=== PATIENT | male | born 1950 | race Caucasian/White ===

== ENCOUNTER 2017-04-28 23:17 | Emergency (ER) | payer MEDICARE ==
[2017-04-28] MEDS ORDERED: Adacel (T-DAP) 0.5 ML VIAL ONE (23:52)
[2017-04-28] MEDS ORDERED: Amoxicillin/Potassium Clav 875 MG TAB ONE ×2 (23:52→23:54)
--- NOTE | 2017-04-29 07:44 | RAD ---
3 VIEWS RIGHT THUMB: Date: 04/29/17 HISTORY: Right thumb swelling and redness. Possible thorn stuck in thumb. FINDINGS: There is subcutaneous soft tissue swelling seen at the volar aspect of the distal thumb. No radiopaqu e foreign body is seen. There is no osseous destruction seen. No fracture or dislocation is identifie d. 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 IMPRESSION: Subcutaneous soft tissue swelling right thumb, but no radiopaque foreign body or fracture is visualiz ed. If there is concern for osteomyelitis, MRI of right thumb is recommended for further evaluation. POS: CODY
== END 2017-04-29 00:14 | disposition home or self-care (01) ==
LOC: SCSER 23:17
DX: S61.031A Puncture wound without foreign body of right thumb without damage to nail, initial encounter (principal); L03.011 Cellulitis of right finger; E78.5 Hyperlipidemia, unspecified; Z23 Encounter for immunization; W26.8XXA Contact with other sharp object(s), not elsewhere classified, initial encounter
CPT/HCPCS: 90471; 90715

== ENCOUNTER 2017-08-01 07:48 | Outpatient (CLI) | payer MEDICARE ==
--- NOTE | 2017-08-01 09:44 | ULT ---
ABDOMINAL AORTIC ULTRASOUND: History: 67-year-old male for screening for abdominal aortic aneurysm. FINDINGS: There is some atherosclerotic plaque involving the aorta. No evidence for focal aneurysm. The bifurca tion regions are unremarkable. Right and left visualized iliac arteries are unremarkable. IMPRESSION: Atherosclerotic plaques involving the aorta, evidence for atherosclerotic disease. No evidence of ane urysm. POS: BRENDA
== END 2017-08-01 07:49 | disposition home or self-care (01) ==
LOC: SCSULT 07:48
PROVIDERS: ATTEND Family Medicine
DX: Z13.6 Encounter for screening for cardiovascular disorders (principal); I70.0 Atherosclerosis of aorta
CPT/HCPCS: 76775

== ENCOUNTER 2017-10-27 23:20 | Emergency (ER) | payer MEDICARE ==
[2017-10-28] MEDS ORDERED: Dicyclomine 20 MG TAB ONE (00:25)
[2017-10-28] MEDS ORDERED: HYDROcodone/Acetaminophen 5/325 mg Tablet ONE (00:25)
== END 2017-10-28 00:52 | disposition home or self-care (01) ==
LOC: SCSER 23:20
DX: R10.32 Left lower quadrant pain (principal); E78.5 Hyperlipidemia, unspecified; Z79.82 Long term (current) use of aspirin
CPT/HCPCS: 99283

== ENCOUNTER 2019-02-26 16:32 | Outpatient (CLI) | payer MEDICARE | END 2019-02-26 16:33 | disposition home or self-care (01) | LOC: CTENTCT 16:32 | PROVIDERS: ATTEND Otolaryngology Plastic Surgery within the Head & Neck | DX: J32.8 Other chronic sinusitis (principal) | CPT/HCPCS: 70486 ==

== ENCOUNTER 2019-08-13 05:38 | Outpatient (CLI) | payer MEDICARE, OTHER ==
[2019-08-13 14:04] LABS: PTT 34.3 sec (22.9-36.1); Prothrombin Time 12.8 sec (12.0-14.7)
[2019-08-13 14:05] LABS: Bacteria/HPF None Seen HPF (None Seen); Bilirubin Negative (Negative); Blood, Urine Negative (Negative); Clarity Clear (Clear); Glucose, Urine (Dipstick) Normal (Negative); Ketone, Urine Negative (Negative); Leukocyte Negative Leu/uL (Negative); Nitrite Negative (Negative); Protein, Urine (Dipstick) Negative (Neg-Trace); RBC/HPF 0-3 HPF (0-3); Specific Gravity, Urine 1.026 (1.002-1.036); Squamous Epithelial None Seen HPF (0-3); Urobilinogen Normal mg/dL (Less than 2); pH, Urine 5.5 (5.0-9.0)
[2019-08-13 14:10] LABS: Hemoglobin 15.6 g/dL (14.0-18.0); Mean Corpuscular HGB CONC 32.2 g/dL (32.0-36.0); Mean Corpuscular Hemoglobin 29.9 pg (27.0-31.0); Mean Platelet Volume 9.1 fL (7.4-10.4); Platelet Count 176 thou/uL (130-400); RBC Distribution Width 12.1 % (11.5-14.5); White Blood Cell (WBC) Count 7.2 thou/uL (4.8-10.8)
[2019-08-13 14:13] LABS: Anion Gap 13 mmol/L (10-20); BUN (Urea Nitrogen) 24 mg/dL (8.4-25.7); Calc. Creatinine Clearance 0 mL/min (70-130); Calcium 9.5 mg/dL (7.8-10.44); Carbon Dioxide 23 mmol/L (23-31); Chloride 106 mmol/L (98-107); Estimated GFR-MDRD 78; Glucose 108 mg/dL (80-115); Potassium 4.4 mmol/L (3.5-5.1); Sodium 138 mmol/L (136-145)
--- NOTE | 2019-08-13 15:55 | EKG ---
Test Reason : Blood Pressure : / mmHG Vent. Rate : 072 BPM Atrial Rate : 072 BPM P-R Int : 148 ms QRS Dur : 108 ms QT Int : 410 ms P-R-T Axes : -01 020 -20 degrees QTc Int : 448 ms Normal sinus rhythm Incomplete right bundle branch block Abnormal ECG When compared with ECG of 03-JUN-2010 14:27, Confirmed by CYNTHIA HUANG, DR. Lay ([id number]) on 08/13/2019 3:55:40 PM Referred By: MACHO Confirmed By:DR. Alireza MARIE MD
[2019-08-14 12:43] LABS: SARS-CoV-2 MS2 Positive; SARS-CoV-2 N Gene Negative; SARS-CoV-2 S Gene Negative; SARS-CoV-2 orf1ab Negative
== END 2019-08-13 05:39 | disposition home or self-care (01) ==
LOC: LABBT 05:38
PROVIDERS: ATTEND Urology
DX: Z01.818 Encounter for other preprocedural examination (principal); Z11.59 Encounter for screening for other viral diseases; N40.1 Benign prostatic hyperplasia with lower urinary tract symptoms; N13.8 Other obstructive and reflux uropathy; E66.9 Obesity, unspecified; R35.1 Nocturia
CPT/HCPCS: 80048; 81001; 85027; 85610; 85730; 87086; 93005; U0003; 87635; 93010

== ENCOUNTER 2019-08-16 07:04 | Day surgery (SDC) | payer MEDICARE ==
[2019-08-12 11:51] VITALS: BMI 30.7
[2019-08-16] MEDS ORDERED: Levofloxacin 500 mg/D5W 100 ml Premix Bag ONE (07:45)
[2019-08-16] MEDS ORDERED: B & O ONE (09:19)
[2019-08-16] MEDS ORDERED: Fentanyl 100 MCG/2 ML VIAL ONE ×2 (09:25→10:41)
[2019-08-16] MEDS ORDERED: Oxybutynin 5 MG TAB ONE (10:41)
[2019-08-16] MEDS ORDERED: Phenazopyridine HCl 97.5 MG TABLET ONE (10:42)
[2019-08-16] MEDS ORDERED: PROPOFOL 200 MG/20 ML VIAL ONE (12:20)
[2019-08-16] MEDS ORDERED: Ondansetron PF 4 MG/2 ML Vial ONE (12:20)
[2019-08-16] MEDS ORDERED: Lidocaine 1% PF 5 ML VIAL ONE (12:20)
--- NOTE | 2019-08-16 16:19 | OP ---
DATE OF PROCEDURE: 08/16/2019 SERVICE: Urology. PREOPERATIVE DIAGNOSIS: Benign prostatic hyperplasia with urinary obstruction. POSTOPERATIVE DIAGNOSIS: Benign prostatic hyperplasia with urinary obstruction. PROCEDURE PERFORMED: UroLift with 6 implants. INDICATIONS FOR PROCEDURE: Mr. Herbert is a 69-year-old white male, who presented with BPH and urinary complaints. His cystoscopy showed suitability for UroLift. We discussed procedure with risks and benefits, and he wished to proceed forward. DESCRIPTION OF PROCEDURE: After identification of armband and verification of consent, the patient was brought back to the operating room, where he underwent general anesthesia with an LMA. He was then placed in dorsal lithotomy position and prepped and draped in usual sterile fashion. After appropriate time-out, a lubricated 21-Niuean rigid cystoscope sheath with visual obturator was passed through the urethra through the prostate into the bladder. The prostate showed features typical to what had been seen on outpatient cystoscopy. The visual obturator was switched out for the UroLift device. The first UroLift implant was placed near the patient's bladder neck on the left side by coming approximately 2.5 cm away from the bladder neck and applying lateral anterior compression. Once compressed, the safety was released and the blue trigger fired with deployment of the needle. The capsular tab and tension were set with a dash trigger, and then the UroLift was advanced forward until the white line was in the keyhole. The back trigger was then fired to deploy the urethral end piece. It was resulted in relatively nice compression of the lateral aspect of the prostate. This was then repeated on the patient's right side and again at the patient's apex on the left and right side. Upon completion, the prostate did appear open; however, there was still a bulge and sagging of the patient's left anterolateral prostate. An anterior implant was placed closer to the bladder neck, which resulted in nice elevation, but still did not address the lateral indentation, so an additional implant had to be used to compress the tissues laterally. After doing this, the prostate did appear very wide open. At this point, I did not feel any additional implants to make any meaningful additional improvements, and the patient does appear to be fully unobstructed. The cystoscope was then withdrawn and an 18-Niuean Umaña catheter was placed with ease into the patient's bladder. 10 mL of sterile water was placed into the balloon and hooked up to gravity drainage. B and O suppository was placed in the rectum. The patient was then taken out of positioning, awakened, taken to PACU for recovery in stable condition. COMPLICATIONS: None. ESTIMATED BLOOD LOSS: Minimal. RETAINED TUBES AND DRAINS: 18-Niuean Umaña catheter. SPECIMENS: None. IMPLANTS USED: Six. DISPOSITION: The patient will undergo a void trial here and then be discharged with his care handled on outpatient basis. Job ID: [id number]
== END 2019-08-16 12:35 | disposition home or self-care (01) ==
LOC: SDC 07:04
PROVIDERS: ATTEND Urology
PROC: 0T7D8DZ Dilation of Urethra with Intraluminal Device, Via Natural or Artificial Opening Endoscopic (ICD-10-PCS; principal; 2019-08-16)
DX: N40.1 Benign prostatic hyperplasia with lower urinary tract symptoms (principal); N13.8 Other obstructive and reflux uropathy; R35.1 Nocturia; R39.12 Poor urinary stream; E66.9 Obesity, unspecified; Z68.30 Body mass index [BMI] 30.0-30.9, adult; Z79.1 Long term (current) use of non-steroidal anti-inflammatories (NSAID); Z79.899 Other long term (current) drug therapy; Z88.3 Allergy status to other anti-infective agents; Z91.048 Other nonmedicinal substance allergy status
CPT/HCPCS: C1889; C9740; J1956; J2405; J2704; J3010

== ENCOUNTER 2020-11-30 10:50 | Outpatient (CLI) | payer MEDICARE | END 2020-11-30 10:51 | disposition home or self-care (01) | LOC: SCSRAD 10:50 | PROVIDERS: ATTEND Family Medicine | DX: M25.562 Pain in left knee (principal); M25.561 Pain in right knee ==

== ENCOUNTER 2021-03-16 17:34 | Outpatient (CLI) | payer MEDICARE ==
[2021-03-17 14:39] LABS: SARS-CoV-2 PCR by NAA Not Detected (NotDetected)
== END 2021-03-16 17:35 | disposition home or self-care (01) ==
LOC: LABBT 17:34
PROVIDERS: ATTEND Ophthalmology Retina Specialist
DX: Z01.812 Encounter for preprocedural laboratory examination (principal); H33.21 Serous retinal detachment, right eye; Z20.822 Contact with and (suspected) exposure to COVID-19
CPT/HCPCS: U0003; U0005

== ENCOUNTER 2021-03-18 10:47 | Day surgery (SDC) | payer MEDICARE ==
[2021-03-16 16:16] VITALS: BMI 32.1
[~2021-03-18 10:47] MED LIST: Fentanyl 100 MCG/2 ML VIAL ONE; Fluorouracil 100 MG, Enoxaparin Sodium 25 MG, EPINEPHrine 0.3 MG in Ophthalmic Irrigati... IRR SCH; Midazolam HCl 2 mg/2 ml Vial ONE
[2021-03-18] MEDS ORDERED: Cyclopentolate 1% Opth Drop 2 ML BOT ONE (12:55)
[2021-03-18] MEDS ORDERED: Phenylephrine 2.5% Ophth Soln 5 ML BOT ONE (12:55)
[2021-03-18] MEDS ORDERED: Maxitrol 0.1% Opth Oint 3.5 GM TUBE ONE (14:08)
[2021-03-18] MEDS ORDERED: Bupivacaine PF 0.75% SDV 10 ML ONE (14:08)
[2021-03-18] MEDS ORDERED: Enoxaparin Sodium 30 MG/0.3 ML SYRINGE ONE (14:08)
[2021-03-18] MEDS ORDERED: Triamcinolone 40 MG/ML VIAL ONE (14:08)
[2021-03-18] MEDS ORDERED: PROPOFOL 200 MG/20 ML VIAL ONE (14:08)
[2021-03-18] MEDS ORDERED: CEFAZOLIN 1 GM VIAL ONE (14:08)
[2021-03-18] MEDS ORDERED: Lidocaine 1% PF 5 ML VIAL ONE (14:08)
[2021-03-18] MEDS ORDERED: Lidocaine 4% PF 5 ML AMP ONE (14:08)
== END 2021-03-18 15:37 | disposition home or self-care (01) ==
LOC: SDC 10:47
PROVIDERS: ATTEND Ophthalmology Retina Specialist
PROC: 08T43ZZ Resection of Right Vitreous, Percutaneous Approach (ICD-10-PCS; principal; 2021-03-18)
DX: H33.011 Retinal detachment with single break, right eye (principal); Z88.8 Allergy status to other drugs, medicaments and biological substances; Z91.048 Other nonmedicinal substance allergy status
CPT/HCPCS: 67025; J0171; J0690; J1650; J2250; J2704; J3010; J3301; J3490; J9190

== ENCOUNTER 2022-11-28 10:04 | Outpatient (CLI) | payer MEDICARE | END 2022-11-28 10:05 | disposition home or self-care (01) | LOC: LABBT 10:04 | PROVIDERS: ATTEND Thoracic Surgery (Cardiothoracic Vascular Surgery) | DX: Z01.818 Encounter for other preprocedural examination (principal); I25.10 Atherosclerotic heart disease of native coronary artery without angina pectoris | CPT/HCPCS: 71046; 93005; 93010 ==

== ENCOUNTER 2022-11-28 10:30 | Inpatient (IN) | payer MEDICARE ==
[2022-11-28 11:29] LABS: Hematocrit 43.9 % (38.8-50.0); Hemoglobin 14.9 g/dL (13.5-17.5); Mean Corpuscular HGB CONC 33.9 g/dL (32.0-36.0); Mean Corpuscular Hemoglobin 29.8 pg (27.0-33.0); Mean Corpuscular Volume 87.8 fl (81.2-95.1); Mean Platelet Volume 10.6 fl (7.4-10.4); Platelet Count 191 10x3/uL (150-450); RBC Distribution Width 12.1 % (11.5-14.5); White Blood Cell (WBC) Count 6.2 10x3/uL (3.5-10.5)
[2022-11-28 12:07] LABS: Anion Gap 14 mmol/L (10-20); BUN (Urea Nitrogen) 19 mg/dL (8.4-25.7); Calc. Creatinine Clearance 0 mL/min (70-130); Calcium 9.4 mg/dL (7.8-10.44); Carbon Dioxide 22 mmol/L (23-31); Chloride 107 mmol/L (98-107); Estimated GFR 82; Glucose 126 mg/dL (83-110); Potassium 4.4 mmol/L (3.5-5.1); Sodium 139 mmol/L (136-145)
[2022-11-29] MEDS ORDERED: EPINEPHrine 1 MG/ML AMP ONE (06:37)
[2022-11-29] MEDS ORDERED: Dexamethasone 4 mg/ml Vial ONE (06:37)
[2022-11-29] MEDS ORDERED: Bupivacaine PF 0.5% 30 ML VIAL ONE (06:38)
[2022-11-29] MEDS ORDERED: Midazolam HCl 2 mg/2 ml Vial ONE (06:41)
[2022-11-29] MEDS ORDERED: fentaNYL PF 100 MCG/2 ML SYRINGE ONE (06:42)
[2022-11-29] MEDS ORDERED: Dexmedetomidine 200 MCG/2 ML VIAL ONE (06:42)
[2022-11-29] MEDS ORDERED: CEFAZOLIN 2 GM VIAL ONE (06:59)
[2022-11-29] MEDS ORDERED: Sodium Chloride 0.9% 100 ML ONE (06:59)
[2022-11-29] MEDS ORDERED: Lidocaine 1% MPF 2 ML VIAL ONE (06:59)
[2022-11-29] MEDS ORDERED: Heparin 10,000 UNITS/1 ML VIAL 30,000 UNITS in Sodium Chloride 0.9% 1,000 ML FS SCH (07:00)
[2022-11-29] MEDS ORDERED: PROPOFOL 200 MG/20 ML VIAL ONE (07:42)
[2022-11-29] MEDS ORDERED: NEOSTIGMINE 3 MG/3 ML SYR 3 MG/3 ML SYRINGE ONE (07:42)
[2022-11-29] MEDS ORDERED: Heparin 30,000 units/30 ml VIAL ONE (07:42)
[2022-11-29] MEDS ORDERED: Esmolol 100 MG/10 ML VIAL ONE (07:42)
[2022-11-29] MEDS ORDERED: Ondansetron PF 4 MG/2 ML Vial ONE (07:42)
[2022-11-29] MEDS ORDERED: Succinylcholine 200 MG/10 ml SYRINGE FS ONE (07:42)
[2022-11-29] MEDS ORDERED: Thrombin 5000 UNITS/5 ML VIAL ONE (07:42)
[2022-11-29] MEDS ORDERED: Lidocaine 1% PF 5 ML VIAL ONE (07:42)
[2022-11-29] MEDS ORDERED: Glycopyrrolate 0.2 MG/ML 5 ML SYRINGE ONE (07:42)
[2022-11-29] MEDS ORDERED: Vecuronium 10 MG VIAL ONE (07:42)
[2022-11-29] MEDS ORDERED: Calcium Chloride 1 GM/10 ML Abboject SYRINGE ONE (07:42)
[2022-11-29] MEDS ORDERED: Protamine Sulfate 250 MG/25 ML VIAL ONE (07:42)
[2022-11-29] MEDS ORDERED: Nitroglycerin 50 MG/250 ML BOT ONE (07:42)
[2022-11-29] MEDS ORDERED: Heparin 5,000 UNITS/ML VIAL ONE (07:42)
[2022-11-29] MEDS ORDERED: Dexamethasone 20 MG/5 ML VIAL ONE (07:42)
[2022-11-29] MEDS ORDERED: Papaverine 60 MG/2 ML VIAL ONE (07:42)
[2022-11-29] MEDS ORDERED: Vancomycin 1 GM VIAL ONE (07:42)
[2022-11-29] MEDS ORDERED: Norepinephrine 4 MG/4 ML VIAL ONE (07:42)
[2022-11-29] MEDS ORDERED: Insulin Regular 300 UNITS/3 ML VIAL ONE (09:34)
[2022-11-29] MEDS ORDERED: Bisacodyl 5 MG TAB PO PRN (10:30)
[2022-11-29] MEDS ORDERED: Morphine 2 MG/ML VIAL SLOW IVP PRN (10:30)
[2022-11-29] MEDS ORDERED: Nitroglycerin 50 MG/250 ML BOT 250 ML IVPB PRN (10:30)
[2022-11-29] MEDS ORDERED: Ipratropium/Albuterol 3 ML NEB NEB PRN (10:30)
[2022-11-29] MEDS ORDERED: Hetastarch 6% 500 ML 500 ML IVPB PRN (10:30)
[2022-11-29] MEDS ORDERED: Potassium Chloride 20 MEQ/100 ML PREMIX BAG IVPB PRN (10:30)
[2022-11-29] MEDS ORDERED: NOREPINEPHRINE 8 MG/250 ML-D5W 250 ML IVPB PRN (10:30)
[2022-11-29] MEDS ORDERED: Guaifenesin DM 100-10/5 ML UDCUP PO PRN (10:30)
[2022-11-29] MEDS ORDERED: Magnesium 2 GM/50 ML(in water) 2 GM in Premix 1 BAG IVPB SCH (10:30)
[2022-11-29] MEDS ORDERED: Bisacodyl 10 MG SUPP PR PRN (10:30)
[2022-11-29] MEDS ORDERED: Promethazine HCl 25 MG/ML VIAL IM PRN (10:30)
[2022-11-29] MEDS ORDERED: D5 1/2 NS w/20 mEq KCL 1,000 ML IV SCH (10:30)
[2022-11-29] MEDS ORDERED: Ondansetron PF 4 MG/2 ML Vial IVP PRN (10:30)
[2022-11-29] MEDS ORDERED: Mag-Al 1200 mg/1200 mg/30 ML UDCUP PO PRN (10:30)
[2022-11-29] MEDS ORDERED: Dextrose 5% in Water 1,000 ML IV PRN (10:45)
[2022-11-29] MEDS ORDERED: Dextrose 50% Abboject 50 ML SYRINGE SLOW IVP PRN (10:45)
[2022-11-29] MEDS ORDERED: Glucagon 1 MG/ML KIT SC PRN (10:45)
[2022-11-29] MEDS ORDERED: Insulin Regular 300 UNITS/3 ML VIAL SC PRN (10:45)
[2022-11-29] MEDS: HUMULIN R 100 UNITS in Sodium Chloride 0.9% 100 ML IVPB SCH (11:17)
[2022-11-29] MEDS: Ketorolac Tromethamine 30 MG/ML VIAL IVP SCH ×3 (11:17→23:03)
[2022-11-29 11:23] LABS: #Basophils 0.1 thou/uL (0.0-0.2); #Eosinphils 0.3 thou/uL (0.0-0.7); #Monocytes 0.9 thou/uL (0.11-0.59); #Neutrophils 14.9 thou/uL (1.40-6.50); %Basophils 0.6 % (0.0-1.0); %Eosinophils 1.2 % (0.0-10.0); %Lymphocytes 19.1 % (21.0-51.0); %Monocytes 4.4 % (0.0-10.0); %Neutrophils 74.1 % (42.0-75.0); Hematocrit 39.1 % (42.0-52.0); Hemoglobin 12.8 g/dL (14.0-18.0); Mean Corpuscular HGB CONC 32.7 g/dL (32.0-36.0); Mean Corpuscular Hemoglobin 30.2 pg (27.0-31.0); Mean Corpuscular Volume 92.2 fl (78.0-98.0); Mean Platelet Volume 10.4 fL (7.4-10.4); Platelet Count 192 10x3/uL (130-400); RBC Distribution Width 12.3 % (11.5-14.5); Red Blood Cell (RBC) Count 4.24 mill/uL (4.70-6.10); White Blood Cell (WBC) Count 20.1 10x3/uL (4.8-10.8)
[2022-11-29 11:35] LABS: INR-International Normal Ratio 1.1
[2022-11-29] MEDS: fentaNYL 50 mcg/mL 1 mL Vial SLOW IVP PRN ×5 (11:43→22:52)
[2022-11-29 11:51] LABS: Anion Gap 12 mmol/L (10-20); BUN (Urea Nitrogen) 22 mg/dL (8.4-25.7); Calc. Creatinine Clearance 96 mL/min (70-130); Calcium 7.9 mg/dL (7.8-10.44); Carbon Dioxide 19 mmol/L (23-31); Chloride 109 mmol/L (98-107); Estimated GFR 74; Glucose 184 mg/dL (83-110); Potassium 3.3 mmol/L (3.5-5.1); Sodium 137 mmol/L (136-145)
[2022-11-29] MEDS: traMADol HCl 50 MG TAB PO PRN ×2 (13:28→23:33)
[2022-11-29] MEDS: CEFAZOLIN 2 GM in Sodium Chloride 0.9% 100 ML IVPB SCH ×2 (15:24→22:50)
[2022-11-29] MEDS: hydrALAZINE 20 MG/ML VIAL SLOW IVP PRN ×2 (16:17→22:47)
[2022-11-29 17:38] LABS: Hematocrit 39.7 % (42.0-52.0); Hemoglobin 12.9 g/dL (14.0-18.0)
[2022-11-29 18:00] LABS: Potassium 3.9 mmol/L (3.5-5.1)
[2022-11-29] MEDS: Atorvastatin Calcium 40 MG TAB PO SCH (20:40)
[2022-11-29] MEDS: Acetaminophen 325 MG TAB PO PRN (20:40)
[2022-11-29] MEDS ORDERED: Famotidine/PF 20 mg/2ml Vial SLOW IVP SCH (21:00)
[2022-11-29] MEDS ORDERED: traZODone HCl 50 MG TAB PO PRN (21:33)
[2022-11-30] MEDS: fentaNYL 50 mcg/mL 1 mL Vial SLOW IVP PRN ×5 (01:38→21:14)
[2022-11-30 03:47] LABS: #Monocytes 1.5 thou/uL (0.11-0.59); #Neutrophils 13.8 thou/uL (1.40-6.50); %Basophils 0.2 % (0.0-1.0); %Lymphocytes 5.2 % (21.0-51.0); %Monocytes 9.2 % (0.0-10.0); %Neutrophils 84.9 % (42.0-75.0); Hematocrit 34.9 % (42.0-52.0); Hemoglobin 11.7 g/dL (14.0-18.0); Mean Corpuscular HGB CONC 33.5 g/dL (32.0-36.0); Mean Corpuscular Hemoglobin 29.8 pg (27.0-31.0); Mean Platelet Volume 10.6 fL (7.4-10.4); Platelet Count 157 10x3/uL (130-400); RBC Distribution Width 12.4 % (11.5-14.5); Red Blood Cell (RBC) Count 3.93 mill/uL (4.70-6.10); White Blood Cell (WBC) Count 16.3 10x3/uL (4.8-10.8)
[2022-11-30 04:11] LABS: Anion Gap 13 mmol/L (10-20); BUN (Urea Nitrogen) 16 mg/dL (8.4-25.7); Calc. Creatinine Clearance 127 mL/min (70-130); Calcium 8.4 mg/dL (7.8-10.44); Carbon Dioxide 20 mmol/L (23-31); Chloride 108 mmol/L (98-107); Estimated GFR 93; Glucose 106 mg/dL (83-110); Potassium 4.4 mmol/L (3.5-5.1); Sodium 137 mmol/L (136-145)
[2022-11-30] MEDS: HUMULIN R 100 UNITS in Sodium Chloride 0.9% 100 ML IVPB SCH (04:15)
[2022-11-30 04:26] LABS: Mean Corpuscular Volume 88.8 fl (78.0-98.0)
[2022-11-30] MEDS: hydrALAZINE 20 MG/ML VIAL SLOW IVP PRN ×2 (05:46→14:45)
[2022-11-30] MEDS: Ketorolac Tromethamine 30 MG/ML VIAL IVP SCH ×3 (05:46→17:03)
[2022-11-30] MEDS: CEFAZOLIN 2 GM in Sodium Chloride 0.9% 100 ML IVPB SCH (05:47)
[2022-11-30] MEDS ORDERED: traZODone HCl 50 MG TAB PO PRN (06:35)
[2022-11-30] MEDS: Acetaminophen 325 MG TAB PO PRN ×2 (06:42→14:53)
[2022-11-30] MEDS: Amlodipine 5 MG TAB PO SCH (08:08)
[2022-11-30] MEDS: FLUoxetine HCl 20 MG CAP PO SCH (08:09)
[2022-11-30] MEDS: Cholecalciferol 1,000 UNITS (25 MCG) TAB PO SCH (08:09)
[2022-11-30] MEDS: Aspirin 325 MG TAB PO SCH (08:09)
[2022-11-30] MEDS: Fluticasone Propionate Nasal Spray 16 gm Bottle NASAL SCH (08:09)
[2022-11-30] MEDS: Magnesium 2 GM/50 ML(in water) 2 GM in Premix 1 BAG IVPB SCH (08:10)
[2022-11-30] MEDS ORDERED: FLU VACC QS2023(65UP)/MF59C/PF 60 MCG/0.5 ML SYRINGE IM ONE (09:00)
[2022-11-30] MEDS ORDERED: Azelastine 137 MCG/NASAL Spray 30 ML NS PRN (09:00)
[2022-11-30] MEDS ORDERED: Insulin Glargine 30 UNITS/0.3 ML VIAL SC PRN (10:41)
[2022-11-30] MEDS ORDERED: Mineral Oil ENEMA PR PRN (13:19)
[2022-11-30] MEDS ORDERED: Nitroglycerin 0.4 MG TAB (25 Tab Bottle) SL PRN (13:19)
[2022-11-30] MEDS ORDERED: Milk Of Magnesia 30 ML UDCUP PO PRN (13:19)
[2022-11-30] MEDS ORDERED: diphenhydrAMINE 25 MG CAP PO PRN (13:19)
[2022-11-30] MEDS ORDERED: Zolpidem Tartrate 5 MG TAB PO PRN (13:19)
[2022-11-30] MEDS ORDERED: Artificial Tear Sol 15 ML BOT EA EYE PRN (13:19)
[2022-11-30] MEDS ORDERED: Guaifenesin DM 100-10/5 ML UDCUP PO PRN (13:19)
[2022-11-30] MEDS: traMADol HCl 50 MG TAB PO PRN (15:34)
[2022-11-30] MEDS: Atorvastatin Calcium 40 MG TAB PO SCH (20:28)
[2022-11-30] MEDS: Losartan 25 MG TAB PO SCH (20:29)
[2022-12-01 04:07] VITALS: BMI 34.0
[2022-12-01] MEDS: Ketorolac Tromethamine 30 MG/ML VIAL IVP SCH ×5 (05:33→23:16)
[2022-12-01] MEDS: Magnesium 2 GM/50 ML(in water) 2 GM in Premix 1 BAG IVPB SCH (08:21)
[2022-12-01] MEDS: Cholecalciferol 1,000 UNITS (25 MCG) TAB PO SCH (08:21)
[2022-12-01] MEDS: Amlodipine 5 MG TAB PO SCH (08:21)
[2022-12-01] MEDS: Aspirin 325 MG TAB PO SCH (08:21)
[2022-12-01] MEDS: FLUoxetine HCl 20 MG CAP PO SCH (08:22)
[2022-12-01] MEDS: Fluticasone Propionate Nasal Spray 16 gm Bottle NASAL SCH (08:22)
[2022-12-01] MEDS ORDERED: Aspirin 325 mg Enteric Coated Tablet PO SCH (09:00)
[2022-12-01] MEDS: traMADol HCl 50 MG TAB PO PRN (17:09)
[2022-12-01] MEDS: Atorvastatin Calcium 40 MG TAB PO SCH (20:22)
[2022-12-01] MEDS: Losartan 25 MG TAB PO SCH (20:22)
[2022-12-01] MEDS: Acetaminophen 325 MG TAB PO PRN (20:52)
[2022-12-02] MEDS: Ketorolac Tromethamine 30 MG/ML VIAL IVP SCH (05:06)
[2022-12-02 05:09] VITALS: TEMP 98.3
[2022-12-02] MEDS: Amlodipine 5 MG TAB PO SCH (08:14)
[2022-12-02] MEDS: FLUoxetine HCl 20 MG CAP PO SCH (08:15)
[2022-12-02] MEDS: Fluticasone Propionate Nasal Spray 16 gm Bottle NASAL SCH (08:15)
[2022-12-02] MEDS: Cholecalciferol 1,000 UNITS (25 MCG) TAB PO SCH (08:15)
[2022-12-02 08:16] VITALS: BP 135/83
[2022-12-02] MEDS ORDERED: Clopidogrel Bisulfate 75 MG TAB PO SCH (09:00)
[2022-12-02] MEDS ORDERED: Aspirin 81 mg Enteric Coated Tablet PO SCH (09:00)
== END 2022-12-02 09:50 | disposition home or self-care (01) | DRG 236 ==
LOC: SURG A 11-29 05:59 → CCU 11-29 10:58
PROVIDERS: ADMIT Thoracic Surgery (Cardiothoracic Vascular Surgery); ATTEND Thoracic Surgery (Cardiothoracic Vascular Surgery)
PROC: 02100Z9 Bypass Coronary Artery, One Artery from Left Internal Mammary, Open Approach (ICD-10-PCS; principal; 2022-11-29)
PROC: 021009W Bypass Coronary Artery, One Artery from Aorta with Autologous Venous Tissue, Open Approach (ICD-10-PCS; 2022-11-29)
PROC: 06BQ0ZZ Excision of Left Saphenous Vein, Open Approach (ICD-10-PCS; 2022-11-29)
PROC: 02L70CK Occlusion of Left Atrial Appendage with Extraluminal Device, Open Approach (ICD-10-PCS; 2022-11-29)
DX: I25.10 Atherosclerotic heart disease of native coronary artery without angina pectoris (principal); E78.00 Pure hypercholesterolemia, unspecified; I10 Essential (primary) hypertension; E11.9 Type 2 diabetes mellitus without complications; Z98.890 Other specified postprocedural states
CPT/HCPCS: 36415; 36416; 71045; 80048; 85025; 85027; 85610; 85730; 86850; 86900; 86901; 90471; 90694; 93005; 93010; 93798; A4311; C1713; C1751; G0008; J0171; J0360; J1100; J1642; J1644; J1815; J1885; J2250; J2405; J2440; J2704; J2720; J3010; J3370; J3475; J3480; J3490; S0020; S0028

== ENCOUNTER 2022-12-15 10:55 | Outpatient (CLI) | payer MEDICARE | END 2022-12-15 10:56 | disposition home or self-care (01) | LOC: BICRAD 10:55 | PROVIDERS: ATTEND Internal Medicine Cardiovascular Disease | DX: R06.02 Shortness of breath (principal); J90 Pleural effusion, not elsewhere classified; Z98.890 Other specified postprocedural states | CPT/HCPCS: 71046 ==